=== PATIENT | female | born 1955 | race Two or more races ===

== ENCOUNTER → 2020-12-26 13:52 | Outpatient (BNVA) | payer OTHER, SELFPAY | PROVIDERS: Visit Provider Advanced Practice Midwife ==

== ENCOUNTER 2021-01-23 15:33 | Outpatient (REF) | payer OTHER, SELFPAY | END 2021-01-23 15:34 | disposition home or self-care (01) | LOC: HO.LAB 15:33 | PROVIDERS: Visit Provider Internal Medicine | DX: Z20.822 Contact with and (suspected) exposure to COVID-19 (principal) | CPT/HCPCS: C9803; U0003; U0005 ==

== ENCOUNTER 2021-03-03 13:30 | Outpatient (REF) | payer MEDICARE, MEDICAID, SELFPAY ==
--- NOTE | ~2021-03-03 | MM_ITS ---
EXAMINATION: MM SCREENING DIGITAL BREAST TOMOSYNTHESIS, BILATERAL CLINICAL INFORMATION: Screening. Asymptomatic. The lifetime risk of breast cancer based on the Tyrer-Cuzick Model is 3.3%. COMPARISON: Mammography: 12/23/2019 TECHNIQUE: Digital breast tomosynthesis is performed in both the craniocaudal and mediolateral oblique views along with computer-aided detection (CAD). Synthesized 2-D images are generated from the tomosynthesis. Additional left exaggerated craniocaudal view performed. FINDINGS: There are scattered areas of fibroglandular density (ACR BI-RADS breast composition Category b). Within the anterior aspect of the right breast upper outer aspect approximately 2.5 cm from the nipple, there is a lobular density measuring approximately 1 cm in diameter without associated calcifications for which spot compression film and possible ultrasound is recommended. Radiology staff will contact patient to obtain this study. No suspicious left breast findings identified. MM/MM tomosynthesis screening BI IMPRESSION: Right breast density for further evaluation, as described. ASSESSMENT: BI-RADS 0: Incomplete - Need Additional Imaging Evaluation RECOMMENDATION: 1. Additional views of the right breast 2. Targeted ultrasound if warranted after review of the additional views. 3. Radiology department staff will contact the patient for additional imaging. This patient's information was entered into a reminder system with a target due date for their next mammogram.
== END 2021-03-03 13:31 | disposition home or self-care (01) ==
LOC: HO.MAMMO 13:30
PROVIDERS: Visit Provider Internal Medicine
DX: Z12.31 Encounter for screening mammogram for malignant neoplasm of breast (principal)
CPT/HCPCS: 77063; 77067

== ENCOUNTER 2021-03-17 14:42 | Outpatient (REF) | payer MEDICARE, MEDICAID, SELFPAY ==
--- NOTE | ~2021-03-17 | MM_ITS ---
EXAMINATION: MM DIAGNOSTIC DIGITAL BREAST TOMOSYNTHESIS, RIGHT CLINICAL INFORMATION: Recall from screening for question of retroareolar density right breast. TC score 3%. No family history breast cancer. COMPARISON: Mammography: 03/03/2021, 12/23/2019 (new baseline). TECHNIQUE: Digital breast tomosynthesis is performed. 2D images are generated from the tomosynthesis. The following views are obtained: 3-D spot CC, 3-D spot MLO, 3-D ML. FINDINGS: There are scattered areas of fibroglandular density (ACR BI-RADS breast composition Category b). The additional views show no persistent asymmetric density. There is no mass or architectural abnormality. The fibroglandular densities appears similar to new baseline exam. Results are discussed with the patient at time of visit. MM/MM tomosynthesis added views R IMPRESSION: Additional views right breast show no persistent asymmetric density, mass, architectural abnormality. ASSESSMENT: BI-RADS 2: Benign RECOMMENDATION: Routine annual mammography screening. This patient's information was entered into a reminder system with a target due date for their next mammogram.
== END 2021-03-17 14:43 | disposition home or self-care (01) ==
LOC: HO.MAMMO 14:42
PROVIDERS: Visit Provider Internal Medicine
DX: R92.2 Inconclusive mammogram (principal)
CPT/HCPCS: 77061; 77065

== ENCOUNTER 2021-06-03 09:14 | Emergency (ER) | payer OTHER, MEDICARE, MEDICAID, SELFPAY ==
[2021-06-03 09:50] VITALS: BP 162/67; PULSE 58; RESP 18; TEMP 36.9; O2SAT 96; BMI 28.7
[2021-06-03] MEDS: Diphth,Pertus(ACell),Tet Adult 0.5 ML SYRINGE IM (10:01)
--- NOTE | 2021-06-03 10:11 | ED.HEATRA ---
HPI - Head Injury General Chief complaint: Head Injury Stated complaint: head injury - work rekated Time Seen by Provider: 06/03/21 09:49 History of Present Illness HPI Narrative: Patient complains of small cut to the top of her head from the lid of a dumpster, no headache no loss of consciousness no dizziness no weakness no confusion, no other injury no other complaints Related Data Home Medications Medication Instructions Recorded Confirmed No Known Home Meds 05/30/21 05/30/21 Allergies Allergy/AdvReac Type Severity Reaction Status Date / Time No Known Allergies Allergy Verified 05/30/21 15:06 [No Known Allergies*] Review of Systems Review of Systems: Positive for scalp laceration Negatives are no dizziness no weakness no fainting no feeling faint no loss of consciousness no headache no blurred vision no confusion no nausea or vomiting, no neck pain no numbness weakness or tingling no chest pain no extremity injury or pain Yes all other systems are reviewed and are negative PMFSH Past Medical History PMFSH Narrative: Patient does not take any blood thinners Source: nursing notes reviewed Medical History (Updated 06/04/21 @ 00:01 by Gisela Jeffries) Arthritis Cataract Cataract, left eye Dyslipidemia Hx of hyperlipidemia Surgical History H/O lumpectomy Hx of tonsillectomy Family History Family History Father No problems noted. Mother Heart attack Social History Social History Housing: Apartment Housing Other:: living with daughter Alcohol intake: never Patient Tobacco Use Status: Never used Tobacco e-Cigarette/Vaping Use: Never Used Second Hand Smoke Exposure: No Advance Directives: No Advance Directives Information Provided: No service: No Current occupational status: employed Current occupational exposures/hazards: No Physical Exam Vital Signs: Vital Signs: Last Vital Signs Temp 98.4 F 06/03/21 09:50 Pulse 58 06/03/21 09:50 Resp 17 06/03/21 10:17 BP 151/61 H 06/03/21 10:17 Pulse Ox 96 06/03/21 09:50 Body Mass Index 28.7 There is a 1 cm superficial laceration in the scalp The head is otherwise normocephalic and atraumatic with no hematoma no defect palpated on the scalp, no raccoon eyes no Wise sign The neck is supple nontender Respiratory no distress Extremities full range of motion x4 Neuro gait and balance are normal, interaction both expression and comprehension are normal, cranial nerves 2-12 intact as tested, cerebellar exam is normal, motor is 5/5 x4 Course Course Course Narrative: Patient with 1 cm superficial laceration to the scalp got a tetanus shot it was cleansed and irrigated, no repair was necessary There was no evidence of any intracranial injury and patient remains comfortable and behaving normally with no headache throughout visit Discharge Plan Discharge Clinical Impression: Laceration Patient Disposition: Home, Self-Care Additional Instructions: The laceration to your scalp was very small, it was washed and did not need any stitches It is okay to wash hair and do everything normally We gave you a tetanus shot Return any time any worse condition or concerns, especially worsening headache vomiting dizziness any worse condition For any ongoing mild problems follow with [facility] if needed blood pressure was high on 2 readings in the ER We recommend get a home blood pressure cuff and keep a record twice a day for 10 days to see your readings are when your relaxed And follow with primary doctor to be checked for high blood pressure Prescriptions: No Action No Known Home Meds RF: 0 Referrals: [facility] [Provider Group] - 2 days (Scalp laceration) Stand Alone Forms: Work/School Release Interventions: ED Discharge Assessment Last Done: 06/03/21 10:28 Discharge Date/Time: 06/03/21 10:28
[2021-06-03 10:17] VITALS: BP 151/61; RESP 17
== END 2021-06-03 10:28 | disposition home or self-care (01) ==
PROVIDERS: Emergency Provider Internal Medicine; PCP Internal Medicine
DX: S01.01XA Laceration without foreign body of scalp, initial encounter (principal); W22.8XXA Striking against or struck by other objects, initial encounter; Y93.E9 Activity, other interior property and clothing maintenance; Y92.9 Unspecified place or not applicable; Y99.0 Civilian activity done for income or pay
CPT/HCPCS: 90471; 90715; 99283; 99284

== ENCOUNTER 2021-07-03 08:47 | Emergency (ER) | payer MEDICARE, MEDICAID, SELFPAY ==
--- NOTE | ~2021-07-03 | XR_ITS ---
EXAMINATION: XR KNEE, RIGHT CLINICAL INFORMATION: Fall. Pain. COMPARISON: None TECHNIQUE: Four views of the right knee. FINDINGS: There is loss of tricompartment joint space with periarticular spurring. There is anterior suprapatella enthesophyte and superior patellar osteophyte. There is moderate Sprotte joint effusion. No loose body seen. No bony erosive changes. XR/XR knee RT 4V IMPRESSION: Moderate size suprapatellar joint effusion. Mild tricompartment degenerative arthritic changes with anterior superior enthesophyte and superior patellar osteophyte.
[2021-07-03 09:03] VITALS: BP 145/79; PULSE 60; RESP 16; TEMP 37.1; O2SAT 99; BMI 28.9
--- NOTE | 2021-07-03 10:23 | ED_ITS ---
HPI - Fall General Chief Complaint: Fall Stated Complaint: fall - rt knee pain Time Seen by Provider: 07/03/21 10:15 Source: patient Mode of arrival: ambulatory Limitations: no limitations History of Present Illness HPI Narrative: 66-year-old female presenting to the ED with complaints of right knee pain after she had a mechanical fall on Saturday when she was walking down her steps slipped and fell approximately on 4 steps landing on her bilateral knees and injuring her right back/flank and since then has been having pain to her right knee does not have pain to her left knee or right flank/back. She denies head injury or loss of consciousness. She denies any symptoms prior to the fall. She denies prolonged downtime. She denies head injury or loss of consciousness or being on any blood thinners or any other injuries complaints or concerns at this time. MD complaint: fall Onset (ago): day(s) (Two days ago) Fall from: down stairs (#) (Approximately 4 steps) Fall witnessed: no Place fall occurred: home Loss of consciousness: none Prolonged down time: no Symptoms prior to fall: none Context: tripped/slipped Location of injury: back (Right midback/flank) Location of injury - extremities: bilateral: knee Severity: moderate (To the right knee only) Quality: aching Associated symptoms (after fall): denies Related Data Previous Rx's Medication Instructions Recorded naproxen 500 mg tablet 500 mg PO BID PRN #10 tab 07/03/21 tramadol 50 mg tablet 50 mg PO BID PRN #14 tab 07/03/21 Allergies Allergy/AdvReac Type Severity Reaction Status Date / Time No Known Allergies Allergy Verified 05/30/21 15:06 [No Known Allergies*] Review of Systems Review of Systems: Constitutional : No Weight loss, No Fever, No Chills, No Night Sweats, No Fatigue, No Malaise ENT/Mouth : No Hearing loss, No Ear Pain, No Nasal Congestion, No Sinus Pain, No Hoarseness, No sore throat, No Rhinorrhea, No Swallowing Difficulty Eyes: No Eye Pain, No Swelling, No Redness, No Foreign Body, No Discharge, No Vision Changes Cardiovascular : No Chest Pain, No SOB, No Dyspnea on Exertion, No Orthopnea, No Edema, No Palpitations Respiratory : No Cough, No Sputum, No Wheezing, No Smoke Exposure, No Dyspnea Gastrointestinal : No Nausea, No Vomiting, No Diarrhea, No Constipation, No abdominal Pain, No Hematochezia, No Melena Genitourinary : no irregular bleeding, No Dysuria, No Urinary Frequency, No Hematuria, No Urinary Incontinence, No Urgency, No Flank Pain, No Urinary Flow Changes, No Hesitancy Musculoskeletal : Positive right knee joint pain/swelling, No Myalgias Skin : No Skin Lesions, No rash Neuro : No Weakness, No Numbness, No Paresthesias, No Loss of Consciousness, No Dizziness, No Headache Psych : No Anxiety/Panic, No Depression, No SI/HI/AH/VH, No Social Issues, Heme/Lymph: No Bruising, No Bleeding,No Lymphadenopathy Endocrine : No Polyuria, No Polydipsia, No Temperature Intolerance Yes all other systems are reviewed and are negative [facility] Past Medical History Attestation statement: The following information was validated with the patient. Medical History Arthritis Cataract Cataract, left eye Dyslipidemia Hx of hyperlipidemia Surgical History H/O lumpectomy Hx of tonsillectomy Family History Family History Father No problems noted. Mother Heart attack Social History Social History Housing: Apartment Housing Other:: living with daughter Alcohol intake: never Patient Tobacco Use Status: Never used Tobacco e-Cigarette/Vaping Use: Never Used Second Hand Smoke Exposure: No Advance Directives: No Advance Directives Information Provided: No service: No Current occupational status: employed Current occupational exposures/hazards: No Physical Exam Vital Signs: Vital Signs: Last Vital Signs Temp 98.7 F 07/03/21 09:03 Pulse 60 07/03/21 09:03 Resp 16 07/03/21 09:03 BP 145/79 H 07/03/21 09:03 Pulse Ox 99 07/03/21 09:03 Body Mass Index 28.9 vital signs have been reviewed as normal and appeared to be correct. Blood pressure hypertensive 145/79 Heart rate normal. Respiration rate normal. Temperature normal. Oxygen saturation normal. Appearance: Alert. Oriented X3. No acute distress. Head: Normal external exam. Normocephalic. Atraumatic. No Wise signs noted. No raccoon eyes noted Eyes: PERRLA. EOMI. Conjunctiva and sclera normal. Eyelids normal. ENT: Pharynx normal. Uvula midline. Moist mucous membranes. Neck: Normal inspection. Neck supple. FROM. No adenopathy. Thyroid Normal. No meningeal signs. No neck mass noted. CVS: Normal heart rate and rhythm. Heart sound normal. Pulses normal throughout. No murmurs/rales/gallops. Respiratory: No respiratory distress. Painless inspiration. Breath sounds normal. No wheezes/rales/rhonchi noted. Chest nontender. No accessory muscle usage noted or decreased air movement noted. Abdomen: Soft and nontender. Bowel sounds normal in all 4 quadrants. No distention noted. No organomegaly noted. No visible injury noted. Back: Patient with ecchymosis noted to right mid back. No obvious deformities are noted. No step-offs noted. No CVA tenderness. Full range of motion noted. No rashes/lesion/induration/fluctuance or signs of infection noted. Skin: Skin warm and dry. Normal skin color. Normal skin turgor. No rashes/lesions/lacerations noted. Extremities: Patient with tenderness to palpation to the right knee diffusely although patient has full range of motion and no obvious deformities or signs of infection are noted. No obvious ligamentous injury noted. No lower extremity edema. No calf tenderness is noted. Otherwise all other extremities exhibit normal range of motion and nontender. Neuro: Oriented X 3. No motor deficit. No sensory deficit. Reflexes normal. Normal steady gait. No focal neuro deficits noted. Vascular: + radial pulses/+ 2 distal pedal pulses/+2 dorsalis pedis b/l. Normal cap refill. No cyanosis noted to upper extremity nails and lower extremity toes nails. Course Course Course Narrative: 66-year-old female presenting to the ED with complaints of right knee pain after she had a mechanical fall on Saturday when she was walking down her steps slipped and fell approximately on 4 steps landing on her bilateral knees and injuring her right back/flank and since then has been having pain to her right knee does not have pain to her left knee or right flank/back. X-rays of right knee obtained and patient negative for acute fractures although revealed moderate-sized joint effusion and arthritis. I placed an Arjun wrap on the patient will DC home with symptomatic treatment instructions return if any new or worsening symptoms to follow up with primary care provider and orthopedics in 2-3 weeks if symptoms do not improve. Patient understands agrees with this plan. MDM - Fall Medical Records Attestation: I reviewed the patient's medical records. Imaging Data Right knee x-ray: Attestation: I personally reviewed and interpreted this imaging study as follows: Radiologist's impression: FINDINGS: There is loss of tricompartment joint space with periarticular spurring. There is anterior suprapatella enthesophyte and superior patellar osteophyte. There is moderate Sprotte joint effusion. No loose body seen. No bony erosive changes.? XR/XR knee RT 4V IMPRESSION: Moderate size suprapatellar joint effusion. ? Mild tricompartment degenerative arthritic changes with anterior superior enthesophyte and superior patellar osteophyte. Discharge Plan Discharge Clinical Impression: Fall, Right knee sprain, Ecchymosis, Effusion of knee joint right, Arthritis of knee, right Patient Disposition: Home, Self-Care Instructions: Knee Sprain (ED), Osteoarthritis (ED), How to Use an Elastic Bandage (ED), Swollen Knee Joint (ED) Prescriptions: New naproxen 500 mg tablet 500 mg PO BID PRN (Reason: pain) Qty: 10 RF: 0 tramadol 50 mg tablet 50 mg PO BID PRN (Reason: pain) Qty: 14 RF: 0 Referrals: Juli Howard MD [Physician] - 2 weeks (If symptoms persist for longer than 2 weeks) Felicity Salinas MD [Primary Care Provider] - 2 days Stand Alone Forms: Work/School Release Print Language: Luxembourger
== END 2021-07-03 10:43 | disposition home or self-care (01) ==
PROVIDERS: Emergency Provider Emergency Medicine Emergency Medical Services; PCP Internal Medicine
DX: S83.91XA Sprain of unspecified site of right knee, initial encounter (principal); S80.01XA Contusion of right knee, initial encounter; M54.5 Low back pain; M25.562 Pain in left knee; M25.561 Pain in right knee; W10.9XXA Fall (on) (from) unspecified stairs and steps, initial encounter; Y93.9 Activity, unspecified; Y92.9 Unspecified place or not applicable; Y99.9 Unspecified external cause status; Z79.899 Other long term (current) drug therapy
CPT/HCPCS: 73564; 99283

== ENCOUNTER 2021-07-07 13:26 | Outpatient (REF) | payer MEDICARE, MEDICAID, SELFPAY | END 2021-07-07 13:27 | disposition home or self-care (01) | LOC: HO.LAB 13:26 | PROVIDERS: PCP Internal Medicine; Visit Provider Internal Medicine | DX: Z20.822 Contact with and (suspected) exposure to COVID-19 (principal) | CPT/HCPCS: C9803; U0003; U0005 ==

== ENCOUNTER 2021-09-19 07:33 | Outpatient (REF) | payer MEDICARE, MEDICAID, SELFPAY ==
[2021-09-19 08:29] LABS: Alanine Aminotransferase 15 U/L (0-31); Albumin Level 4.4 g/dL (3.5-5.0); Alkaline Phosphatase 97 U/L (39-117); Anion Gap 11 (12-20); Aspartate Amino Transferase 19 U/L (5-31); Bilirubin Total 0.7 mg/dL (0.0-1.0); Blood Urea Nitrogen 18 mg/dL (9-16); Calcium 9.7 mg/dL (8.4-10.2); Carbon Dioxide 27 mmol/L (22-29); Chloride 110 mmol/L (96-108); Cholesterol 276 mg/dL; Estimated Glomerular Filt Rate > 60; Glucose Fasting 100 mg/dL (60-99); HDL Cholesterol 62 mg/dL; LDL Cholesterol Calculated 195 mg/dl; Potassium 4.1 mmol/L (3.3-5.1); Sodium 144 mmol/L (135-145); Total Protein 7.5 g/dL (6.5-8.0); Triglycerides 99 mg/dL
[2021-09-24 15:01] LABS: Vitamin D 25-OH, D2 <4 ng/mL; Vitamin D 25-OH, D3 35 ng/mL; Vitamin D 25-OH, Total 35 ng/mL (30-100)
== END 2021-09-19 07:34 | disposition home or self-care (01) ==
LOC: HO.LAB 07:33
PROVIDERS: PCP Internal Medicine; Visit Provider Internal Medicine
DX: E78.5 Hyperlipidemia, unspecified (principal); E55.9 Vitamin D deficiency, unspecified
CPT/HCPCS: 36415; 80053; 80061; 82306

== ENCOUNTER 2022-01-17 15:25 | Outpatient (REF) | payer MEDICARE, SELFPAY ==
--- NOTE | ~2022-01-17 | MR_ITS ---
MRI OF THE BRAIN WITHOUT IV CONTRAST INDICATION: Tremor. COMPARISON: None available. TECHNIQUE: Multiplanar multisequence MR imaging of the brain was obtained without IV contrast. FINDINGS: There is no hydrocephalus, extra-axial surface collection, or herniation. There is mild chronic microangiopathy. The major flow voids at the skull base are preserved. There is no acute infarct on diffusion-weighted imaging. There is no intracranial hemorrhage on the gradient recalled echo acquisition. There is a 7 mm focus of susceptibility signal within the left parasagittal frontal lobe that may reflect a focus of chronic hemosiderin staining versus a small cavernoma. No adjacent parenchymal edema. Mineralization within the globus pallidus bilaterally. The midline structures are normal. The cerebellar tonsils are normally positioned. The cerebellum and brainstem are normal. The craniocervical junction is normal. Osseous marrow signal intensity is homogenous. The visualized soft tissues are unremarkable. MR/MR head/brain wo con IMPRESSION: - There are no acute intracranial findings. - There is mild chronic microangiopathy. - There is a 7 mm focus of susceptibility signal within the left parasagittal frontal lobe that may reflect a focus of chronic hemosiderin staining versus a small cavernoma.
== END 2022-01-17 15:26 | disposition home or self-care (01) ==
LOC: HO.MRI 15:25
PROVIDERS: Visit Provider Internal Medicine
DX: G25.2 Other specified forms of tremor (principal)
CPT/HCPCS: 70551

== ENCOUNTER → 2022-01-30 10:54 | Outpatient (BNVA) | payer MEDICARE, SELFPAY | PROVIDERS: PCP Internal Medicine; Visit Provider Psychiatry & Neurology Neurology | DX: R25.1 Tremor, unspecified (principal); R90.89 Other abnormal findings on diagnostic imaging of central nervous system | CPT/HCPCS: 99202 ==

== ENCOUNTER 2022-03-09 12:51 | Outpatient (REF) | payer MEDICARE, MEDICAID, SELFPAY ==
--- NOTE | ~2022-03-09 | MM_ITS ---
EXAMINATION: MM SCREENING DIGITAL BREAST TOMOSYNTHESIS, BILATERAL CLINICAL INFORMATION: Screening. Asymptomatic. The lifetime risk of breast cancer based on the Tyrer-Cuzick Model is 3%. COMPARISON: Mammography: 03/17/2021, 03/03/2021, 12/23/2019 TECHNIQUE: Digital breast tomosynthesis is performed in both the craniocaudal and mediolateral oblique views along with computer-aided detection (CAD). Synthesized 2D images are generated from the tomosynthesis. FINDINGS: There are scattered areas of fibroglandular density (ACR BI-RADS breast composition Category b). There are no significant masses, abnormal calcifications, or other abnormalities. There is some vascular calcifications. Parenchymal pattern is similar to prior studies. The axilla and skin contours are unremarkable. No significant changes. MM/MM tomosynthesis screening BI IMPRESSION: No mammographic evidence of malignancy. ASSESSMENT: BI-RADS 1: Negative RECOMMENDATION: Routine annual mammography screening. This patient's information was entered into a reminder system with a target due date for their next mammogram.
--- NOTE | ~2022-03-09 | MM_ITS ---
EXAMINATION: BONE DENSITOMETRY CLINICAL INDICATION: Asymptomatic menopausal state. COMPARISON: This is the patient's baseline examination. TECHNIQUE: Using a [employer] DXA System (software version: 13.1) manufactured by [employer], dual-energy x-ray absorptiometry was performed of the lumbar spine and left hip. The images are of good technical quality. Summary results are attached. FINDINGS: AP SPINE L1-L4: BMD 1.018 g/cm2, Z-score 0.1, T-score -1.4, osteopenia. LEFT FEMUR, NECK: BMD 0.849 g/cm2, Z-score 0.1, T-score -1.4, osteopenia. LEFT FEMUR, TOTAL: BMD 0.848 g/cm2, Z-score -0.1, T-score -1.3, osteopenia. IDENTIFIED RISK FACTORS: Early menopause, secondary osteoporosis. HISTORY OF FRACTURE: None listed. MEDICATIONS: Calcium supplements or multivitamin, vitamin D. MM/XR DEXA axial skeleton IMPRESSION: 1. DIAGNOSIS: Osteopenia based on the lowest T-score value of -1.4 in the femoral neck and lumbar spine applying World Health Organization criteria. 2. 10-YEAR FRACTURE RISK PREDICTION, FRAX: Major osteoporotic fracture (clinical spine, forearm, hip or shoulder) 4.9%. Hip fracture 0.5%. 3. Treatment Recommendations: NOF guidelines recommend consideration for treatment in postmenopausal women and men age 50 and older presenting with the following: -A hip or vertebral (clinical or morphometric) fracture. -T-score less than or equal to -2.5 at the femoral neck or spine after appropriate evaluation to exclude secondary causes. -Low bone mass at the hip or spine and a 10-year fracture probability by FRAX of greater than or equal to 3% for hip fracture or greater than or equal to 20% for major osteoporotic fracture based on the [place] adapted WHO algorithm. 4. Other Recommendations: All treatment decisions require clinical judgment and consideration of individual patient factors, including patient preferences, comorbidities, previous drug use, risk factors not captured in the FRAX model (e.g. frailty, falls, vitamin D deficiency, increased bone turnover, interval significant decline in bone density) and possible under or overestimation of fracture risk by FRAX. Additional medical evaluation for secondary cause of low bone mineral density may be appropriate. FUTURE SCAN RECOMMENDATION: People with diagnosed cases of osteoporosis or at high risk for fracture should have regular bone mineral density tests. For patients eligible for Medicare, routine testing is allowed once every 2 years. The testing frequency can be increased to one year for patients who have rapidly progressing disease, those who are receiving or discontinuing medical therapy to restore bone mass, or have additional risk factors.
== END 2022-03-09 12:52 | disposition home or self-care (01) ==
LOC: HO.MAMMO 12:51
PROVIDERS: PCP Internal Medicine; Visit Provider Nurse Practitioner Family
DX: Z12.31 Encounter for screening mammogram for malignant neoplasm of breast (principal); Z13.820 Encounter for screening for osteoporosis; Z78.0 Asymptomatic menopausal state; M85.80 Other specified disorders of bone density and structure, unspecified site
CPT/HCPCS: 77063; 77067; 77080

== ENCOUNTER 2022-04-05 08:55 | Outpatient (REF) | payer MEDICARE, MEDICAID, SELFPAY ==
[2022-04-05 09:20] LABS: COVID-19 Test Positive (Negative); IDNOW Serial# 08D9AD1C
== END 2022-04-05 08:56 | disposition home or self-care (01) ==
LOC: HO.LAB 08:55
PROVIDERS: Visit Provider Internal Medicine
DX: Z20.822 Contact with and (suspected) exposure to COVID-19 (principal)
CPT/HCPCS: 87635; C9803